=== PATIENT | male | born 1940 | race African-American/Black ===

== ENCOUNTER 2018-08-29 10:45 | Outpatient (CLI) | payer MEDICARE ==
[2018-09-02 21:06] LABS: Myeloperoxidase Antibody <1.0 AI (<1.0)
[2018-09-03 21:04] LABS: ANA Screen, IFA Negative (Negative)
== END 2018-08-29 10:46 | disposition home or self-care (01) ==
LOC: LAB 10:45 → EDBD 10:45 → LAB 10:46
PROVIDERS: ATTEND Internal Medicine
DX: J84.9 Interstitial pulmonary disease, unspecified (principal)
CPT/HCPCS: 36415; 82164; 82785; 82803; 86021; 86038; 86618